=== PATIENT | female | born 1955 | race Caucasian/White ===

== ENCOUNTER 2018-07-02 20:33 | Emergency (ER) | payer OTHER, SELFPAY ==
[2018-07-02 20:36] VITALS: BP 146/76; PULSE 82; RESP 18; TEMP 36.8; O2SAT 96; BMI 28.0
--- NOTE | 2018-07-02 20:41 | ED.FALL ---
HPI - Fall <RENETTA Watters - Last Filed: 07/02/18 21:40> General Chief Complaint: Fall Stated Complaint: GLF, lac to nose Time Seen by Provider: 07/02/18 20:41 Source: patient Mode of arrival: EMS Limitations: no limitations History of Present Illness HPI Narrative: 63-year-old female with history of hypertension and is a nonsmoker here for complaint of abrasions and a laceration to her face after ground level fall. She accidentally tripped while getting off the [place] falling forward hitting her forehead and her face/ nose area slightly prior to arrival. They deny any loss of conscious. No nausea or vomiting. She denies being on any blood thinners. She also reports having pain into her bilateral knees as she hit her knees when she fell to the ground as well. She denies any other injuries. No other concerns or complaints. she does report her last tetanus was up-to-date. complaint: fall Related Data Allergies Allergy/AdvReac Type Severity Reaction Status Date / Time codeine Allergy Verified 07/02/18 20:47 Sulfa (Sulfonamide Allergy Verified 07/02/18 20:47 Antibiotics) Review of Systems <RENETTA Watters - Last Filed: 07/02/18 21:40> Review of Systems All systems reviewed & are unremarkable except as noted in HPI and below Constitutional Denies chills, Denies fever(s), Denies lethargy and Denies weakness Eyes Denies change in vision, Denies eye discharge, Denies irritation and Denies loss of vision ENT Ears, Nose, Mouth, and Throat: Denies change in voice, Denies neck pain and Denies sore throat Comments: Lacerations to face and nose Cardiovascular Denies chest pain, Denies irregular heart rhythm, Denies lightheadedness, Denies palpitations, Denies dyspnea, Denies dyspnea on exertion and Denies orthopnea Respiratory Denies cough, Denies dyspnea, Denies dyspnea on exertion and Denies wheezing Gastrointestinal Gastrointestinal: Denies abdominal pain, Denies change in bowel habits, Denies diarrhea, Denies nausea and Denies vomiting Genitourinary Denies hematuria, Denies flank pain, Denies urinary incontinence and Denies urinary urgency Musculoskeletal Denies neck pain Comments: pain to bilateral knees Integumentary/Breasts Denies pruritus, Denies erythema, Denies rash and Denies wounds Neurologic Denies confusion, Denies loss of vision and Denies weakness Psychiatric Denies anxiety, Denies confusion, Denies depression, Denies homicidal ideation and Denies suicidal ideation Endocrine Denies palpitations Hematologic/Lymphatic Denies easy bruising Allergic/Immunologic Denies wheezing Exam <RENETTA Watters - Last Filed: 07/02/18 21:40> Initial Vital Signs Initial Vital Signs: Vital Signs Temperature 98.2 F 07/02/18 20:36 Pulse Rate 82 07/02/18 20:36 Respiratory Rate 18 07/02/18 20:36 Blood Pressure 146/76 H 07/02/18 20:36 Pulse Oximetry 96 07/02/18 20:36 Const General: cooperative and well developed Nutritional Appearance: well nourished Orientation: alert, awake, oriented x3 and not confused [facility] Head: normal to inspection, normocephalic, abrasion, No contusion, No hematoma, No laceration, No palpable skull fracture, No raccoon eyes, No scalp lesion, No scalp tenderness and No temporal artery tenderness Nose: nares normal, nasal mucous membranes and turbinates normal and other ( multiple small abrasions to the bridge of the nose and to the anterior face. Small 0.5cm laceration to the bridge of nose. No deformity seen.) Mouth: oral mucosae normal and moist mucous membranes Eyes Conjunctivae: conjunctivae normal Sclera: sclerae normal Pupils: PERRL EOM: EOM intact bilaterally Neck Neck: normal visual inspection, trachea midline, No lymphadenopathy, No midline deformity and No JVD Lymphatic: No lymphedema Chest Chest: normal inspection of the chest Resp Effort & Inspection: normal respiratory effort, able to speak in complete sentences, no respiratory distress and no use of accessory muscles Auscultation: clear to auscultation bilaterally, no rales, no rhonchi and no wheezes Cardio Rate: regular rate Rhythm: regular rhythm Heart Sounds: no click, no gallops, no murmurs and no rubs GI Inspection: non-distended Palpation: soft, no hepatosplenomegaly, No guarding, No pulsatile mass and No tender Auscultation: normal bowel sounds Neuro General: alert, oriented x3, gait normal and no focal motor deficits Speech: speech normal Extrem Other: tenderness to anterior portion of a bilateral knees. Slight swelling. No ecchymosis. Full range of motion. Distal CMS is intact bilaterally <Andrew More DO - Last Filed: 07/03/18 01:59> Initial Vital Signs Initial Vital Signs: Vital Signs Temperature 98.2 F 07/02/18 20:36 Pulse Rate 82 07/02/18 20:36 Respiratory Rate 18 07/02/18 20:36 Blood Pressure 146/76 H 07/02/18 20:36 Pulse Oximetry 96 07/02/18 20:36 Course <RENETTA Watters - Last Filed: 07/02/18 21:40> Orders Ordered: ED Orders 07/02/18 20:41 CT facial bones wo con Stat CT head/brain wo con Stat XR knee LT 3V Stat XR knee RT 3V Stat Discontinued Medications Ibuprofen (Advil) 400 mg PO NOW ONE Stop: 07/02/18 20:45 Last Admin: 07/02/18 20:49 Dose: 400 mg Vital Signs - 8 hr 07/02/18 20:36 07/02/18 21:44 Temperature 98.2 F Pulse Rate 82 75 Respiratory Rate 18 18 Blood Pressure 146/76 H Pulse Oximetry 96 99 <Andrew More DO - Last Filed: 07/03/18 01:59> Orders Ordered: ED Orders 07/02/18 20:41 CT facial bones wo con Stat CT head/brain wo con Stat XR knee LT 3V Stat XR knee RT 3V Stat Discontinued Medications Ibuprofen (Advil) 400 mg PO NOW ONE Stop: 07/02/18 20:45 Last Admin: 07/02/18 20:49 Dose: 400 mg Vital Signs - 8 hr 07/02/18 20:36 07/02/18 21:44 Temperature 98.2 F Pulse Rate 82 75 Respiratory Rate 18 18 Blood Pressure 146/76 H Pulse Oximetry 96 99 MDM - Fall <RENETTA Watters - Last Filed: 07/02/18 21:40> Imaging Data CT scan - head: Radiologist's impression: [address] [address] [address] Scan Report Signed Patient: Johnna Gallardo#: [id number] : 5Acct:[id number] Age/Sex: 63 / FDate of Service: 07/02/18 Loc: ED Accession Number: [id number] Procedure: CT head/brain wo con Ordering Provider: Akbar Perales PROCEDURE: CT HEAD/BRAIN WO CON INDICATIONS: ground level fall hitting face and forehead TECHNIQUE: Noncontrast 4.5 mm thick angled axial sections acquired from the foramen magnum to the vertex, with coronal and sagittal reformats. For radiation dose reduction, the following was used: automated exposure control, adjustment of mA and/or kV according to patient size. COMPARISON: None. FINDINGS: Image quality: Excellent. CSF spaces: Basal cisterns are patent. No extra-axial fluid collections. The ventricles are symmetric in size and shape. Brain: No intracranial bleeds or masses. There is cerebral volume loss for age, with resultant ventricular and sulcal prominence. There are periventricular and deep white matter chronic small vessel ischemic changes. There is intracranial internal carotid artery atherosclerosis. Skull and face: Calvarium and visualized facial bones appear intact, without suspicious lesions. Sinuses: Visualized sinuses and mastoids are clear. IMPRESSION: No acute intracranial process Dictated by: Oswald Lepe M.D. on 07/02/2018 at 21:14 Approved by: Oswald Lepe M.D. on 07/02/2018 at 21:[address]: Radiologist's impression: [place] [address] CT Scan Report Signed Patient: Johnna Gallardo#: [id number] : 5Acct:[id number] Age/Sex: 63 / FDate of Service: 07/02/18 Loc: ED Accession Number: [id number] Procedure: CT facial bones wo con Ordering Provider: Akbar Perales PROCEDURE: CT FACIAL BONES WO CON INDICATIONS: ground level fall striking face and forehead TECHNIQUE: Noncontrast 2.5 mm thick axial images acquired from the mandible through the frontal sinuses, with coronal and sagittal reformatting. For radiation dose reduction, the following was used: automated exposure control, adjustment of mA and/or kV according to patient size. COMPARISON: None. FINDINGS: Image quality: Excellent. Bones and teeth: Orbital david are intact. Sinus david show no fracture or deformity. Nasal bones and septum are intact. Visualized portions of the mandible demonstrate no fractures or subluxation. Zygomatic arches are intact. Pterygoid plates are intact. Visualized portions of the skull base and auditory canals are intact. Sinuses: Right maxillary sinus mucous retention cyst or polyp. Mastoid air cells are aerated. Soft tissues: No edema, masses, or fluid collections. No enlarged lymph nodes. No soft tissue lacerations or debris. Vascular: Visualized vascular structures appear normal in the absence of contrast. Bony vascular foramina and canals are intact. IMPRESSION: No fracture. Dictated by: Oswald Lepe M.D. on 07/02/2018 at 21:11 Approved by: Oswald Lepe M.D. on 07/02/2018 at 21:13 R knee: Radiologist's impression: [place] [address] XRay Report Signed Patient: Johnna Gallardo#: [id number] : 1955ct:[id number] Age/Sex: 63 / FDate of Service: 07/02/18 Loc: ED Accession Number: [id number] Procedure: XR knee RT 3V Ordering Provider: Akbar Perales PROCEDURE: XR KNEE RT 3V INDICATIONS: pain bilateral knees aft TECHNIQUE: 3 views of the knee were acquired. COMPARISON: None. FINDINGS: Bones: No fractures or dislocations. No suspicious bony lesions. Spurring at the superior pole of the patella. Soft tissues: No joint effusion. No suspicious soft tissue calcifications. IMPRESSION: Degenerative spurring. No fracture. Dictated by: Oswald Lepe M.D. on 07/02/2018 at 21:23 Approved by: Oswald Lepe M.D. on 07/02/2018 at 21:24 L knee: Radiologist's impression: [address] [address] XRay Report Signed Patient: Johnna Gallardo#: [id number] : 5Acct:[id number] Age/Sex: 63 / FDate of Service: 07/02/18 Loc: ED Accession Number: [id number] Procedure: XR knee LT 3V Ordering Provider: Akbar Perales PROCEDURE: XR KNEE LT 3V INDICATIONS: Pain bilateral knees after ground level fall TECHNIQUE: 3 views of the knee were acquired. COMPARISON: None. FINDINGS: Bones: No fractures or dislocations. No suspicious bony lesions. Spurring at the superior pole of patella. Soft tissues: No joint effusion. No suspicious soft tissue calcifications. IMPRESSION: No fracture. Dictated by: Oswald Lepe M.D. on 07/02/2018 at 21:24 Approved by: Oswald Lepe M.D. on 07/02/2018 at 21:25 [facility] Narrative Medical decision making narrative: CT of the head and facial bones was obtained was negative for any acute findings. X-rays of bilateral knees were obtained and was also negative for any acute findings. Patient is ambulatory into the emergency room with no complications. Small laceration to the bridge of the nose was cleansed with normal saline and closed with Dermabond. [id number] ibuprofen as needed for any discomfort. Head injury instructions are provided with warning signs return to the emergency room. Follow up with primary care for the next few days for re-evaluation. For any worsening symptoms return to the emergency room. Discharge Plan Departure Patient Disposition: Home Clinical Impression: Minor closed head injury Discharge Date/Time: 07/02/18 21:45 Interventions: ED Discharge Assessment Last Done: 07/02/18 21:44 Instructions: DI for Closed Head Injury Activity Restrictions/Additional Instructions: CT of the head and facial bones was obtained was negative for any acute findings. X-rays of bilateral knees were obtained and was also negative for any acute findings. P Small laceration to the bridge of the nose was cleansed with normal saline and closed with Dermabond. [id number] ibuprofen as needed for any discomfort. Head injury instructions are provided with warning signs return to the emergency room. Follow up with primary care for the next few days for re-evaluation. For any worsening symptoms return to the emergency room. Referrals: [facility] [Provider Group]
[2018-07-02] MEDS: IBUPROFEN 400 MG TABLET PO (20:49)
--- NOTE | 2018-07-02 21:26 | ED_ITS ---
HPI - Fall <RENETTA Watters - Last Filed: 07/02/18 21:40> General Chief Complaint: Fall Stated Complaint: GLF, lac to nose Time Seen by Provider: 07/02/18 20:41 Source: patient Mode of arrival: EMS Limitations: no limitations History of Present Illness HPI Narrative: 63-year-old female with history of hypertension and is a nonsmoker here for complaint of abrasions and a laceration to her face after ground level fall. She accidentally tripped while getting off the [place] falling forward hitting her forehead and her face/ nose area slightly prior to arrival. They deny any loss of conscious. No nausea or vomiting. She denies being on any blood thinners. She also reports having pain into her bilateral knees as she hit her knees when she fell to the ground as well. She denies any other injuries. No other concerns or complaints. she does report her last tetanus was up-to-date. complaint: fall Related Data Allergies Allergy/AdvReac Type Severity Reaction Status Date / Time codeine Allergy Verified 07/02/18 20:47 Sulfa (Sulfonamide Allergy Verified 07/02/18 20:47 Antibiotics) Review of Systems <RENETTA Watters - Last Filed: 07/02/18 21:40> Review of Systems All systems reviewed & are unremarkable except as noted in HPI and below Constitutional Denies chills, Denies fever(s), Denies lethargy and Denies weakness Eyes Denies change in vision, Denies eye discharge, Denies irritation and Denies loss of vision ENT Ears, Nose, Mouth, and Throat: Denies change in voice, Denies neck pain and Denies sore throat Comments: Lacerations to face and nose Cardiovascular Denies chest pain, Denies irregular heart rhythm, Denies lightheadedness, Denies palpitations, Denies dyspnea, Denies dyspnea on exertion and Denies orthopnea Respiratory Denies cough, Denies dyspnea, Denies dyspnea on exertion and Denies wheezing Gastrointestinal Gastrointestinal: Denies abdominal pain, Denies change in bowel habits, Denies diarrhea, Denies nausea and Denies vomiting Genitourinary Denies hematuria, Denies flank pain, Denies urinary incontinence and Denies urinary urgency Musculoskeletal Denies neck pain Comments: pain to bilateral knees Integumentary/Breasts Denies pruritus, Denies erythema, Denies rash and Denies wounds Neurologic Denies confusion, Denies loss of vision and Denies weakness Psychiatric Denies anxiety, Denies confusion, Denies depression, Denies homicidal ideation and Denies suicidal ideation Endocrine Denies palpitations Hematologic/Lymphatic Denies easy bruising Allergic/Immunologic Denies wheezing Exam <RENETTA Watters - Last Filed: 07/02/18 21:40> Initial Vital Signs Initial Vital Signs: Vital Signs Temperature 98.2 F 07/02/18 20:36 Pulse Rate 82 07/02/18 20:36 Respiratory Rate 18 07/02/18 20:36 Blood Pressure 146/76 H 07/02/18 20:36 Pulse Oximetry 96 07/02/18 20:36 Const General: cooperative and well developed Nutritional Appearance: well nourished Orientation: alert, awake, oriented x3 and not confused [facility] Head: normal to inspection, normocephalic, abrasion, No contusion, No hematoma, No laceration, No palpable skull fracture, No raccoon eyes, No scalp lesion, No scalp tenderness and No temporal artery tenderness Nose: nares normal, nasal mucous membranes and turbinates normal and other ( multiple small abrasions to the bridge of the nose and to the anterior face. Small 0.5cm laceration to the bridge of nose. No deformity seen.) Mouth: oral mucosae normal and moist mucous membranes Eyes Conjunctivae: conjunctivae normal Sclera: sclerae normal Pupils: PERRL EOM: EOM intact bilaterally Neck Neck: normal visual inspection, trachea midline, No lymphadenopathy, No midline deformity and No JVD Lymphatic: No lymphedema Chest Chest: normal inspection of the chest Resp Effort & Inspection: normal respiratory effort, able to speak in complete sentences, no respiratory distress and no use of accessory muscles Auscultation: clear to auscultation bilaterally, no rales, no rhonchi and no wheezes Cardio Rate: regular rate Rhythm: regular rhythm Heart Sounds: no click, no gallops, no murmurs and no rubs GI Inspection: non-distended Palpation: soft, no hepatosplenomegaly, No guarding, No pulsatile mass and No tender Auscultation: normal bowel sounds Neuro General: alert, oriented x3, gait normal and no focal motor deficits Speech: speech normal Extrem Other: tenderness to anterior portion of a bilateral knees. Slight swelling. No ecchymosis. Full range of motion. Distal CMS is intact bilaterally <Andrew More DO - Last Filed: 07/03/18 01:59> Initial Vital Signs Initial Vital Signs: Vital Signs Temperature 98.2 F 07/02/18 20:36 Pulse Rate 82 07/02/18 20:36 Respiratory Rate 18 07/02/18 20:36 Blood Pressure 146/76 H 07/02/18 20:36 Pulse Oximetry 96 07/02/18 20:36 Course <RENETTA Watters - Last Filed: 07/02/18 21:40> Orders Ordered: ED Orders 07/02/18 20:41 CT facial bones wo con Stat CT head/brain wo con Stat XR knee LT 3V Stat XR knee RT 3V Stat Discontinued Medications Ibuprofen (Advil) 400 mg PO NOW ONE Stop: 07/02/18 20:45 Last Admin: 07/02/18 20:49 Dose: 400 mg Vital Signs - 8 hr 07/02/18 20:36 07/02/18 21:44 Temperature 98.2 F Pulse Rate 82 75 Respiratory Rate 18 18 Blood Pressure 146/76 H Pulse Oximetry 96 99 <Andrew More DO - Last Filed: 07/03/18 01:59> Orders Ordered: ED Orders 07/02/18 20:41 CT facial bones wo con Stat CT head/brain wo con Stat XR knee LT 3V Stat XR knee RT 3V Stat Discontinued Medications Ibuprofen (Advil) 400 mg PO NOW ONE Stop: 07/02/18 20:45 Last Admin: 07/02/18 20:49 Dose: 400 mg Vital Signs - 8 hr 07/02/18 20:36 07/02/18 21:44 Temperature 98.2 F Pulse Rate 82 75 Respiratory Rate 18 18 Blood Pressure 146/76 H Pulse Oximetry 96 99 MDM - Fall <RENETTA Watters - Last Filed: 07/02/18 21:40> Imaging Data CT scan - head: Radiologist's impression: [address] [address] [address] Scan Report Signed Patient: Johnna Gallardo#: [id number] : 5Acct:[id number] Age/Sex: 63 / FDate of Service: 07/02/18 Loc: ED Accession Number: [id number] Procedure: CT head/brain wo con Ordering Provider: Akbar Perales PROCEDURE: CT HEAD/BRAIN WO CON INDICATIONS: ground level fall hitting face and forehead TECHNIQUE: Noncontrast 4.5 mm thick angled axial sections acquired from the foramen magnum to the vertex, with coronal and sagittal reformats. For radiation dose reduction, the following was used: automated exposure control, adjustment of mA and/or kV according to patient size. COMPARISON: None. FINDINGS: Image quality: Excellent. CSF spaces: Basal cisterns are patent. No extra-axial fluid collections. The ventricles are symmetric in size and shape. Brain: No intracranial bleeds or masses. There is cerebral volume loss for age , with resultant ventricular and sulcal prominence. There are periventricular and deep white matter chronic small vessel ischemic changes. There is intracranial internal carotid artery atherosclerosis. Skull and face: Calvarium and visualized facial bones appear intact, without suspicious lesions. Sinuses: Visualized sinuses and mastoids are clear. IMPRESSION: No acute intracranial process Dictated by: Oswald Lepe M.D. on 07/02/2018 at 21:14 Approved by: Oswald Lepe M.D. on 07/02/2018 at 21:[address]: Radiologist's impression: [place] [address] CT Scan Report Signed Patient: Johnna Gallardo#: [id number] : 5Acct:[id number] Age/Sex: 63 / FDate of Service: 07/02/18 Loc: ED Accession Number: [id number] Procedure: CT facial bones wo con Ordering Provider: Akbar Perales PROCEDURE: CT FACIAL BONES WO CON INDICATIONS: ground level fall striking face and forehead TECHNIQUE: Noncontrast 2.5 mm thick axial images acquired from the mandible through the frontal sinuses, with coronal and sagittal reformatting. For radiation dose reduction, the following was used: automated exposure control, adjustment of mA and/or kV according to patient size. COMPARISON: None. FINDINGS: Image quality: Excellent. Bones and teeth: Orbital david are intact. Sinus david show no fracture or deformity. Nasal bones and septum are intact. Visualized portions of the mandible demonstrate no fractures or subluxation. Zygomatic arches are intact. Pterygoid plates are intact. Visualized portions of the skull base and auditory canals are intact. Sinuses: Right maxillary sinus mucous retention cyst or polyp. Mastoid air cells are aerated. Soft tissues: No edema, masses, or fluid collections. No enlarged lymph nodes. No soft tissue lacerations or debris. Vascular: Visualized vascular structures appear normal in the absence of contrast. Bony vascular foramina and canals are intact. IMPRESSION: No fracture. Dictated by: Oswald Lpee M.D. on 07/02/2018 at 21:11 Approved by: Oswald Lepe M.D. on 07/02/2018 at 21:13 R knee: Radiologist's impression: [place] [address] XRay Report Signed Patient: Johnna Gallardo#: [id number] : 1955ct:[id number] Age/Sex: 63 / FDate of Service: 07/02/18 Loc: ED Accession Number: [id number] Procedure: XR knee RT 3V Ordering Provider: Akbar Perales PROCEDURE: XR KNEE RT 3V INDICATIONS: pain bilateral knees aft TECHNIQUE: 3 views of the knee were acquired. COMPARISON: None. FINDINGS: Bones: No fractures or dislocations. No suspicious bony lesions. Spurring at the superior pole of the patella. Soft tissues: No joint effusion. No suspicious soft tissue calcifications. IMPRESSION: Degenerative spurring. No fracture. Dictated by: Oswald Lepe M.D. on 07/02/2018 at 21:23 Approved by: Oswald Lepe M.D. on 07/02/2018 at 21:24 L knee: Radiologist's impression: [address] [address] XRay Report Signed Patient: Johnna Gallardo#: [id number] : 5Acct:[id number] Age/Sex: 63 / FDate of Service: 07/02/18 Loc: ED Accession Number: [id number] Procedure: XR knee LT 3V Ordering Provider: Akbar Perales PROCEDURE: XR KNEE LT 3V INDICATIONS: Pain bilateral knees after ground level fall TECHNIQUE: 3 views of the knee were acquired. COMPARISON: None. FINDINGS: Bones: No fractures or dislocations. No suspicious bony lesions. Spurring at the superior pole of patella. Soft tissues: No joint effusion. No suspicious soft tissue calcifications. IMPRESSION: No fracture. Dictated by: Oswald Lepe M.D. on 07/02/2018 at 21:24 Approved by: Oswald Lepe M.D. on 07/02/2018 at 21:25 [facility] Narrative Medical decision making narrative: CT of the head and facial bones was obtained was negative for any acute findings. X-rays of bilateral knees were obtained and was also negative for any acute findings. Patient is ambulatory into the emergency room with no complications. Small laceration to the bridge of the nose was cleansed with normal saline and closed with Dermabond. Over- the-counter ibuprofen as needed for any discomfort. Head injury instructions are provided with warning signs return to the emergency room. Follow up with primary care for the next few days for re-evaluation. For any worsening symptoms return to the emergency room. Discharge Plan Departure Patient Disposition: Home Clinical Impression: Minor closed head injury Discharge Date/Time: 07/02/18 21:45 Interventions: ED Discharge Assessment Last Done: 07/02/18 21:44 Instructions: DI for Closed Head Injury Activity Restrictions/Additional Instructions: CT of the head and facial bones was obtained was negative for any acute findings. X-rays of bilateral knees were obtained and was also negative for any acute findings. P Small laceration to the bridge of the nose was cleansed with normal saline and closed with Dermabond. [id number] ibuprofen as needed for any discomfort. Head injury instructions are provided with warning signs return to the emergency room. Follow up with primary care for the next few days for re-evaluation. For any worsening symptoms return to the emergency room. Referrals: [facility] [Provider Group]
[2018-07-02 21:44] VITALS: PULSE 75; RESP 18; O2SAT 99
== END 2018-07-02 21:45 | disposition home or self-care (01) ==
PROVIDERS: Emergency Provider Nurse Practitioner Family
DX: S09.90XA Unspecified injury of head, initial encounter (principal); W19.XXXA Unspecified fall, initial encounter
CPT/HCPCS: 70450; 70486; 73562; 99283